=== PATIENT | male | born 1995 | race Caucasian/White ===

== ENCOUNTER 2020-05-02 17:31 | Emergency (ER) | payer OTHER | END 2020-05-02 18:10 | disposition left against medical advice (07) | LOC: ER1 17:31 | DX: S89.91XA Unspecified injury of right lower leg, initial encounter (principal); X58.XXXA Exposure to other specified factors, initial encounter; Z53.21 Procedure and treatment not carried out due to patient leaving prior to being seen by health care provider ==

== ENCOUNTER → 2020-06-06 | Outpatient (CLI) | payer OTHER | LOC: RAD 14:40 | DX: M54.5 Low back pain (principal); M79.661 Pain in right lower leg | CPT/HCPCS: 72110; 73590 ==

== ENCOUNTER 2020-07-04 13:19 | Emergency (ER) | payer OTHER | END 2020-07-04 21:06 | disposition home or self-care (01) | LOC: ER1 13:19 | DX: M79.672 Pain in left foot (principal); E66.01 Morbid (severe) obesity due to excess calories; F17.210 Nicotine dependence, cigarettes, uncomplicated; Z79.899 Other long term (current) drug therapy | CPT/HCPCS: 73630; 99283 ==